=== PATIENT | male | born 1925 | race Caucasian/White ===

== ENCOUNTER 2017-09-21 11:33 | Emergency (ER) | payer OTHER ==
[~2017-09-21] VITALS: Ht 180.3 cm; Wt 85.0 kg
[~2017-09-21 11:33] MED LIST: BIMA0.01 OP; DORZ1SOL6 OP; METF-384 PO; TERA5CAP PO; [UNRECOGNIZED DRUG - OTHER] PO
[2017-09-21 11:40] VITALS: TEMP 37; Ht 180.3 cm; Wt 85.0 kg
[2017-09-21] MEDS ORDERED: ALBUTEROL 0.083% NEBU SOLN 3 ML VIAL INH STA ×2 (11:58→12:55)
--- NOTE | 2017-09-21 12:04 | EMERGENCY ROOM VISIT NOTE ---
History Report prepared by Alfonso: Shahnaz Aguilar Under the Supervision of: Dr. Sunil Quispe M.D. First contact with patient: 11:42 Chief Complaint: FLU LIKE SX Stated Complaint: GENERAL ILLNESS History of Present Illness The patient is an 89 year old male who presents to the Emergency Room with complaints of a persistent cough that began last Saturday. He also complains of flu like symptoms, an intermittent fever, and pain across his chest. He believes the pressure is a gas pressure as it only hurts when he burps. He started feeling better on but last night around 2129, he started feeling "terrible," Ambulating makes the patient's pain worse. He has a history of hypertension. Source of History: patient Onset: last Saturday Position: chest (respiratory ) Quality: other (persistent cough ) Modifying Factors (Worsening): other (ambulating ) Associated Symptoms: + fevers, + chest pain Review of Systems See HPI for pertinent positives & negatives. A total of 10 systems reviewed and were otherwise negative. Past Medical & Surgical Medical Problems: (1) Diabetes Family History Family history omitted secondary to the patient's age. Social History Smoking Status: Former Smoker Drug Use: none Marital Status: Housing Status: lives with significant other Occupation Status: retired Current/Historical Medications Scheduled Azithromycin (Zithromax Z-Albino), 250 MG PO UD Bimatoprost (Lumigan), 1 DROPS OP HS Dorzolamide Hcl-Timolol Maleat (Cosopt Oph), 1 DROPS OP BID Lisinopril (Zestril), 40 MG PO DAILY Metformin Hcl (Glucophage), 1,000 MG PO DAILY Terazosin (Hytrin), 5 MG PO HS Scheduled PRN Hydrocodone W/ Homatropine (Hycodan 5/1.5MG 5 Ml), 5 ML PO HS PRN for Cough Allergies Coded Allergies: No Known Allergies (Unverified , 07/11/17) Physical Exam Vital Signs Date Time Temp Pulse Resp B/P (MAP) Pulse Ox O2 Delivery O2 Flow Rate FiO2 09/21/17 15:07 93 18 123/74 95 09/21/17 14:02 93 18 123/74 95 Room Air 09/21/17 12:23 91 18 157/82 99 Room Air 09/21/17 11:40 37.0 100 18 169/85 95 Room Air 09/21/17 11:40 108 Physical Exam GENERAL: Patient is a healthy-appearing well-nourished male HEAD: Normocephalic atraumatic EYES: Ocular movements intact pupils equal and react to light OROPHARYNX mucous membranes are moist no exudates present no erythema or edema present NECK: Supple no nuchal rigidity CHEST: Good equal expansion LUNGS: Clear and equal to auscultation CARDIAC: Normal S1 and S2 ABDOMEN: Soft nontender no guarding BACK: No CVA tenderness EXTREMITIES: No pain upon palpation normal muscle strength in all groups no clubbing cyanosis or edema NEURO: Patient is following commands and answering questions appropriately. Alert and oriented x3 Cranial Nerves 2-12 grossly intact Medical Decision & Procedures ER Provider Diagnostic Interpretation: Radiology results as stated below per my review and radiologist interpretation: SINGLE VIEW CHEST CLINICAL HISTORY: Atypical chest pain. FINDINGS: An AP, portable, upright chest radiograph is obtained. No prior studies are available for comparison at the time of dictation. The examination is degraded by portable technique and patient rotation. The cardiomediastinal silhouette is unremarkable. There is atherosclerotic calcification with uncoiling of the thoracic aorta. Patchy airspace opacities are present at both lung bases. No large pleural effusion is identified. No pneumothorax is seen. The skeletal structures are osteopenic. The bony thorax is grossly intact. IMPRESSION: Patchy airspace opacities are present at both lung bases. This could represent atelectasis versus pneumonia/aspiration pneumonitis. Clinical correlation will be required. Electronically signed by: Florencio Bernard M.D. 09/21/2017 12:18 PM Dictated Date/Time: 09/21/2017 12:[address] SCAN OF THE ABDOMEN AND PELVIS WITH IV CONTRAST CLINICAL HISTORY: Left lower quadrant abdominal pain. COMPARISON STUDY: No priors. TECHNIQUE: Following the IV administration of 94 cc of Optiray 320, CT scan of the abdomen and pelvis is performed from the lung bases to the proximal femora. Images are reviewed in the axial, sagittal, and coronal planes. IV contrast was administered without complication. A dose lowering technique was utilized adhering to the principles of ALARA. CT DOSE: 458.97 mGy.cm FINDINGS: Lung bases: The heart is normal in size and without pericardial effusion. Subpleural reticulation is seen at both lung bases. No airspace consolidation or pleural effusion is identified. Liver: The contrast-enhanced liver is normal in size, contour, and attenuation. There is no intrahepatic biliary ductal dilatation. The hepatic veins and portal veins are patent. Scattered subcentimeter hepatic hypodensities likely represent cysts but are too small for definitive characterization. Gallbladder: Unremarkable. Spleen: Normal in size and attenuation. Pancreas: Atrophic and grossly unremarkable Adrenal glands: Unremarkable. Kidneys: The contrast enhanced kidneys are atrophic and without hydronephrosis. The kidneys enhance symmetrically. Foci of cortical scarring are noted in both kidneys. Abdominal vasculature: There is moderate to advanced atherosclerotic calcification and mild ectasia of the abdominal aorta. Bowel: There are scattered colonic diverticula without CT evidence of acute diverticulitis. No bowel obstruction is seen. The appendix is well-visualized and normal. Peritoneum: There is no intraperitoneal free air or abdominal ascites. There is a small fat-containing umbilical hernia. Lymphadenopathy: None. Pelvic viscera: The prostate gland is markedly enlarged and heterogeneous, measuring 6.5 cm in transverse outer. There is median lobe hypertrophy. The bladder wall is thickened and trabeculated consistent with chronic outlet obstruction. A 2.0 cm diverticulum is seen on the left. Skeletal structures: The skeletal structures are osteopenic. Moderate lumbosacral spondylosis is observed. No lytic or blastic lesions are seen. IMPRESSION: 1. There are no acute infectious or inflammatory findings in the abdomen or pelvis. 2. Prostatomegaly with evidence of chronic bladder outlet obstruction. 3. Additional findings as above. Electronically signed by: Florencio Bernard M.D. 09/21/2017 2:34 PM Dictated Date/Time: 09/21/2017 2:29 PM Laboratory Results 09/21/17 11:56 Red Blood Count 4.15, Mean Corpuscular Volume 95.4, Mean Corpuscular Hemoglobin 33.0, Mean Corpuscular Hemoglobin Concent 34.6, Mean Platelet Volume 9.8 09/21/17 11:56 Test 09/21/17 11:56 09/21/17 12:04 White Blood Count 6.18 K/uL (4.8-10.8) Red Blood Count 4.15 M/uL (4.7-6.1) Hemoglobin 13.7 g/dL (14.0-18.0) Hematocrit 39.6 % (42-52) Mean Corpuscular Volume 95.4 fL (80-100) Mean Corpuscular Hemoglobin 33.0 pg (25-34) Mean Corpuscular Hemoglobin Concent 34.6 g/dl (32-36) Platelet Count 132 K/uL (130-400) Mean Platelet Volume 9.8 fL (7.4-10.4) RDW Standard Deviation 46.9 fL (36.4-46.3) RDW Coefficient of Variation 13.4 % (11.5-14.5) Neutrophils % (Manual) 66.0 % Lymphocytes % (Manual) 8.7 % Variant Lymphocytes % (manual) 18.3 % Monocytes % (Manual) 6.1 % Basophils % (Manual) 0.9 % (0-2) Neutrophils # (Manual) 4.08 K/uL (1.4-6.5) Total Absolute Neutrophils 4.08 K/uL (1.4-6.5) Lymphocytes # (Manual) 0.54 K/uL (1.2-3.4) Absolute Variant Lymphocytes 1.13 K/uL Total Absolute Lymphocytes 1.67 K/uL (1.2-3.4) Monocytes # (Manual) 0.38 K/uL (0.11-0.59) Basophils # (Manual) 0.06 K/uL (0-0.2) Anion Gap 8.0 mmol/L (3-11) Est Creatinine Clear Calc Drug Dose 39.8 ml/min Estimated GFR () 54.1 Estimated GFR (Non- 46.6 BUN/Creatinine Ratio 7.9 (10-20) Calcium Level 8.6 mg/dl (8.5-10.1) Total Bilirubin 0.9 mg/dl (0.2-1) Direct Bilirubin 0.3 mg/dl (0-0.2) Aspartate Amino Transf (AST/SGOT) 46 U/L (15-37) Alanine Aminotransferase (ALT/SGPT) 46 U/L (12-78) Alkaline Phosphatase 61 U/L (45-117) Total Creatine Kinase 354 U/L (39-308) Creatine Kinase MB 2.0 ng/ml (0.5-3.6) Creatine Kinase MB Ratio 0.6 (0-3.0) Troponin I < 0.015 ng/ml (0-0.045) Total Protein 7.8 gm/dl (6.4-8.2) Albumin 3.3 gm/dl (3.4-5.0) Lipase 128 U/L (73-393) Influenza Type A Antigen Neg for Influ A (NEG) Influenza Type B Antigen Neg for Influ B (NEG) Labs reviewed by ED physician. Medications Administered Medications (Trade) Dose Ordered Sig/Ashley Route Start Time Stop Time Status Last Admin Dose Admin Albuterol Sulfate (Ventolin 0.083% 2.5MG/3ML Neb) 2.5 mg NOW STAT INH 09/21/17 11:58 09/21/17 11:59 DC 09/21/17 11:58 2.5 MG Acetaminophen (Tylenol Tab) 1,000 mg NOW STAT PO 09/21/17 12:55 09/21/17 12:57 DC 09/21/17 13:04 1,000 MG Albuterol Sulfate (Ventolin 0.083% 2.5MG/3ML Neb) 2.5 mg NOW STAT INH 09/21/17 12:55 09/21/17 12:57 DC 09/21/17 12:55 2.5 MG Albuterol (Ventolin Hfa Inhaler) 2 puffs NOW STAT INH 09/21/17 14:50 09/21/17 14:52 DC 09/21/17 14:56 2 PUFFS Azithromycin (Zithromax Tab) 500 mg NOW STAT PO 09/21/17 14:50 09/21/17 14:52 DC 09/21/17 14:56 500 MG ECG Indication: chest pain Rate (beats per minute): 96 Rhythm: normal sinus Findings: 1st degree AV block, no acute ischemic change, no ectopy ED Course 1145: Past medical records reviewed. The patient was evaluated in room C10. A complete history and physical examination was performed. 1158: Ordered albuterol sulfate 2.5 mg INH 1245: Ordered ioversol 100 ml IV 1255: Ordered albuterol sulfate 2.5 mg INH, acetaminophen 1000 mg PO 1450: Ordered Zithromax Tab 500 mg PO, Albuterol 500 mg INH 1459: Upon reexamination the patient is agreeable. I discussed results and treatment plan with the patient. He verbalizes agreement and understanding. The patient is ready for discharge. Medical Decision Differential diagnosis: Etiologies such as viral syndrome, otitis, pharyngitis, pneumonia, influenza, meningitis, urinary tract infection, sepsis, bacteremia, as well as others were entertained. This is an 89-year-old male who presents emergency department complaining of cough. I will note that the patient is much improved with breathing treatment. In addition the patient's CAT scan the other pelvis does not show any acute process. The patient wishes to be discharged home with feel that this is reasonable. I will trial him on an albuterol inhaler and encouraged him to take azithromycin. Patient was in agreement with the treatment plan. Medication Reconcilliation Current Medication List: was personally reviewed by me Blood Pressure Screening Patient's blood pressure: Elevated blood pressure Blood pressure disposition: Referred to PCP Impression Primary Impression: Acute bronchitis Scribe Attestation The scribe's documentation has been prepared under my direction and personally reviewed by me in its entirety. I confirm that the note above accurately reflects all work, treatment, procedures, and medical decision making performed by me. Departure Information Dispostion Home / Self-Care Prescriptions Hydrocodone W/ Homatropine (HYCODAN 5/1.5MG 5 ML) 1 Syp Syp 5 ML PO HS Y for Cough, #120 ML Prov: Sunil Quispe MD 09/21/17 Azithromycin (ZITHROMAX Z-ALBINO) 250 Mg Tab 250 MG PO UD for 4 Days, #4 TAB Prov: Sunil Quispe MD 09/21/17 Referrals No Doctor, Assigned (PCP) Patient Instructions My [facility] Additional Instructions Take 2 puffs of inhaler twice every 6 hours You have been examined and treated today on an emergency basis only. This is not a substitute for, or an effort to provide, complete comprehensive medical care. It is impossible to recognize and treat all injuries or illnesses in a single emergency department visit. It is therefore important that you follow up closely with your PCP. Call as soon as possible for an appointment. Thank you for your time and consideration. I look forward to speaking with you again soon. Please don't hesitate to call us if you have any questions. Problem Qualifiers Primary Impression: Acute bronchitis Bronchitis organism: unspecified organism Qualified Codes: J20.9 - Acute bronchitis, unspecified
--- NOTE | 2017-09-21 12:20 | DIAGNOSTIC IMAGING REPORT ---
SINGLE VIEW CHEST CLINICAL HISTORY: Atypical chest pain. FINDINGS: An AP, portable, upright chest radiograph is obtained. No prior studies are available for comparison at the time of dictation. The examination is degraded by portable technique and patient rotation. The cardiomediastinal silhouette is unremarkable. There is atherosclerotic calcification with uncoiling of the thoracic aorta. Patchy airspace opacities are present at both lung bases. No large pleural effusion is identified. No pneumothorax is seen. The skeletal structures are osteopenic. The bony thorax is grossly intact. IMPRESSION: Patchy airspace opacities are present at both lung bases. This could represent atelectasis versus pneumonia/aspiration pneumonitis. Clinical correlation will be required. Electronically signed by: Florencio Bernard M.D. 09/21/2017 12:18 PM Dictated Date/Time: 09/21/2017 12:17 PM
[2017-09-21 12:27] LABS: HEMATOCRIT 39.6 % (42-52); HEMOGLOBIN 13.7 g/dL (14.0-18.0); MEAN CELL VOLUME 95.4 fL (80-100); MEAN CORPUSCULAR HGB CONC 34.6 g/dl (32-36); MEAN PLATELET VOLUME 9.8 fL (7.4-10.4); PLATELET COUNT 132 K/uL (130-400); RED CELL DISTRIBUTION WIDTH CV 13.4 % (11.5-14.5); RED CELL DISTRIBUTION WIDTH SD 46.9 fL (36.4-46.3); WHITE BLOOD COUNT 6.18 K/uL (4.8-10.8)
[2017-09-21 12:44] LABS: ALBUMIN 3.3 gm/dl (3.4-5.0); ALT/SGPT 46 U/L (12-78); AST/SGOT 46 U/L (15-37); BLOOD UREA NITROGEN 11 mg/dl (7-18); CALCIUM 8.6 mg/dl (8.5-10.1); CARBON DIOXIDE 24 mmol/L (21-32); CREATININE 1.34 mg/dl (0.60-1.40); GLUCOSE 141 mg/dl (70-99); LIPASE 128 U/L (73-393); POTASSIUM 3.9 mmol/L (3.5-5.1); SODIUM 135 mmol/L (136-145)
[2017-09-21] MEDS ORDERED: OPTIRAY 320 IV PRN (12:45)
[2017-09-21 12:49] LABS: ALKALINE PHOSPHATASE 61 U/L (45-117); TOTAL PROTEIN 7.8 gm/dl (6.4-8.2)
[2017-09-21 12:53] LABS: INFLUENZA B ANTIGEN Neg for Influ B (NEG)
[2017-09-21] MEDS ORDERED: ACETAMINOPHEN 500 MG TAB PO STA (12:55)
[2017-09-21] MEDS ORDERED: LISI40TA PO (13:01)
[2017-09-21] MEDS ORDERED: METF-384 PO (13:01)
--- NOTE | 2017-09-21 14:35 | DIAGNOSTIC IMAGING REPORT ---
CT SCAN OF THE ABDOMEN AND PELVIS WITH IV CONTRAST CLINICAL HISTORY: Left lower quadrant abdominal pain. COMPARISON STUDY: No priors. TECHNIQUE: Following the IV administration of 94 cc of Optiray 320, CT scan of the abdomen and pelvis is performed from the lung bases to the proximal femora. Images are reviewed in the axial, sagittal, and coronal planes. IV contrast was administered without complication. A dose lowering technique was utilized adhering to the principles of ALARA. CT DOSE: 458.97 mGy.cm FINDINGS: Lung bases: The heart is normal in size and without pericardial effusion. Subpleural reticulation is seen at both lung bases. No airspace consolidation or pleural effusion is identified. Liver: The contrast-enhanced liver is normal in size, contour, and attenuation. There is no intrahepatic biliary ductal dilatation. The hepatic veins and portal veins are patent. Scattered subcentimeter hepatic hypodensities likely represent cysts but are too small for definitive characterization. Gallbladder: Unremarkable. Spleen: Normal in size and attenuation. Pancreas: Atrophic and grossly unremarkable Adrenal glands: Unremarkable. Kidneys: The contrast enhanced kidneys are atrophic and without hydronephrosis. The kidneys enhance symmetrically. Foci of cortical scarring are noted in both kidneys. Abdominal vasculature: There is moderate to advanced atherosclerotic calcification and mild ectasia of the abdominal aorta. Bowel: There are scattered colonic diverticula without CT evidence of acute diverticulitis. No bowel obstruction is seen. The appendix is well-visualized and normal. Peritoneum: There is no intraperitoneal free air or abdominal ascites. There is a small fat-containing umbilical hernia. Lymphadenopathy: None. Pelvic viscera: The prostate gland is markedly enlarged and heterogeneous, measuring 6.5 cm in transverse outer. There is median lobe hypertrophy. The bladder wall is thickened and trabeculated consistent with chronic outlet obstruction. A 2.0 cm diverticulum is seen on the left. Skeletal structures: The skeletal structures are osteopenic. Moderate lumbosacral spondylosis is observed. No lytic or blastic lesions are seen. IMPRESSION: 1. There are no acute infectious or inflammatory findings in the abdomen or pelvis. 2. Prostatomegaly with evidence of chronic bladder outlet obstruction. 3. Additional findings as above. Electronically signed by: Florencio Bernard M.D. 09/21/2017 2:34 PM Dictated Date/Time: 09/21/2017 2:29 PM
[2017-09-21] MEDS ORDERED: ALBUTEROL HFA 8 GM INHALER INH STA (14:50)
[2017-09-21] MEDS ORDERED: AZITHROMYCIN 250 MG TAB PO STA (14:50)
[2017-09-21] MEDS ORDERED: AZITTAB PO (14:52)
[2017-09-21] MEDS ORDERED: HYDR5SYP11 PO (14:53)
[2017-09-21 15:07] VITALS: BP 123/74; PULSE 93; O2SAT 95
== END 2017-09-21 15:07 | disposition home or self-care (01) ==
LOC: EDBD 11:33 → C.EDC 11:33
DX: J20.9 Acute bronchitis, unspecified (principal); E11.9 Type 2 diabetes mellitus without complications; Z87.891 Personal history of nicotine dependence